=== PATIENT | female | born 1980 | race Caucasian/White ===

== ENCOUNTER 2022-08-12 21:36 | Outpatient (REF) | payer OTHER, SELFPAY ==
[2022-08-17 11:07] LABS: Age Gdln ACOG Testing Note (.); HPV Aptima Negative (Negative); IGP, Aptima HPV, rfx 16/18,45 Note (.)
== END 2022-08-12 21:37 | disposition home or self-care (01) ==
LOC: LAB 21:36
PROVIDERS: Visit Provider Physician Assistant
DX: Z12.4 Encounter for screening for malignant neoplasm of cervix (principal)
CPT/HCPCS: 87624; G0145

== ENCOUNTER 2023-12-30 20:41 | Outpatient (REF) | payer OTHER, SELFPAY | END 2023-12-30 20:42 | disposition home or self-care (01) | LOC: LAB 20:41 | PROVIDERS: Visit Provider Physician Assistant | DX: Z01.419 Encounter for gynecological examination (general) (routine) without abnormal findings (principal) | CPT/HCPCS: 87624; 88175 ==